=== PATIENT | male | born 1965 | race Caucasian/White ===

== ENCOUNTER 2019-08-28 07:01 | Outpatient (CLI) | payer OTHER ==
--- NOTE | 2019-08-28 13:59 | Ultrasound Report ---
Reason: ABD TENDERNESS RUQ, GERD Procedure Date: 08/28/2019 Accession Number: [id number] / [id number] Procedure: US - Abdomen Limited CPT Code: Final Report FULL RESULT: EXAM: ABDOMEN LIMITED EXAM DATE: 08/28/2019 07:38 AM INDICATION: ABD TENDERNESS RUQ, GERD. COMPARISONS: NONE. TECHNIQUE: Real-time scanning was performed with static images obtained. FINDINGS: Liver: Left liver lobe appears small. Liver parenchyma is heterogeneous and moderately hyperechoic. No discrete liver masses or intrahepatic bile duct dilation. However, evaluation for masses is limited secondary to the echogenicity. Right liver measures 17 cm. Main portal vein flow: Hepatopetal. Gallbladder: Normal. No stones, wall thickening, or sonographic Soliz's sign. Biliary System: CBD measures 4 mm. No intrahepatic or extrahepatic ductal dilatation. Pancreas: Normal. Right kidney: 10.1 cm. No hydronephrosis. Abdominal aorta and IVC: Normal. Other: None. IMPRESSION: 1. No liver mass or intrahepatic dilation.Echogenic moderately fatty liver. 2. Normal gallbladder and common bile duct. 3. Normal pancreas. [facility]
== END 2019-08-28 07:02 | disposition home or self-care (01) ==
LOC: DI 07:01
PROVIDERS: ATTEND Family Medicine
DX: R10.811 Right upper quadrant abdominal tenderness (principal); K21.9 Gastro-esophageal reflux disease without esophagitis; K76.0 Fatty (change of) liver, not elsewhere classified
CPT/HCPCS: 76705